=== PATIENT | female | born 2000 | race Hispanic/Latino ===

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

== ENCOUNTER 2021-03-22 23:37 | Emergency (ER) | payer MEDICAID ==
[~2021-03-22] VITALS: Ht 149.9 cm; Wt 65.0 kg
[~2021-03-22 23:37] MED LIST changes: +PHENERGAN25 MG/TAB PO
[2021-03-23 01:30] VITALS: BP 102/67
[2021-03-23] MEDS ORDERED: ZPAK PO (03:15)
== END 2021-03-23 03:25 | disposition home or self-care (01) ==
LOC: ED 23:37
DX: J02.9 Acute pharyngitis, unspecified (principal); Z20.822 Contact with and (suspected) exposure to COVID-19

== ENCOUNTER 2021-08-26 18:20 | Emergency (ER) | payer MEDICAID ==
[~2021-08-26] VITALS: Ht 149.9 cm; Wt 53.0 kg
[~2021-08-26 18:20] MED LIST changes: +ZPAK PO
[2021-08-26 20:28] LABS: HEMATOCRIT 41.9 % (37.0-47.0); HEMOGLOBIN 13.9 g/dl (12.0-16.0); IMMATURE GRANULOCYTES 0.7 % (0.0-5.0); MEAN CELL VOLUME 96.1 fL CALC (80.0-100.0); MEAN CORPUSCULAR HGB 31.9 pG CALC (26.0-32.0); MEAN CORPUSCULAR HGB CONC 33.2 g/dL CAL (32.0-36.0); RED BLOOD COUNT 4.36 mill/uL (4.20-5.60); RED CELL DISTRI WIDTH 12.4 % (11.5-15.5)
[2021-08-26 20:30] LABS: URINE BILIRUBIN - DIPSTICK NEGATIVE (NEGATIVE); URINE BLOOD DIPSTICK NEGATIVE (NEGATIVE); URINE COLOR YELLOW; URINE GLUCOSE - DIPSTICK NEGATIVE (NEGATIVE); URINE KETONE 40 mg/dL (NEGATIVE); URINE LEUK ESTERASE NEGATIVE (NEGATIVE); URINE PROTEIN - DIPSTICK TRACE mg/dL (NEG-TRACE); URINE SPECIFIC GRAVITY >=1.030; URINE UROBILINOGEN - DIPSTICK 0.2 E.U./dL (0.2)
[2021-08-26 20:31] LABS: URINE NITRITE - DIPSTICK NEGATIVE (Negative)
[2021-08-26 20:45] LABS: ALKALINE PHOSPHATASE 51 u/l (38-126); AMYLASE 59 u/l (30-110); ANION GAP 15 (6-22 (CALC)); BILIRUBIN, TOTAL 0.5 mg/dL (0.0-1.4); BUN 14 mg/dL (7-17); BUN/CREATININE RATIO 21 (12-20 (CALC)); CARBON DIOXIDE 25 mmol/l (22-30); CHLORIDE 102 mmol/l (95-108); CREATININE 0.7 mg/dL (0.5-1.0); GFR > 60 ML/MIN (>=60 (CALC)); GFR FOR AFR.AMER. > 60 ML/MIN (>=60 (CALC)); LIPASE 58 u/l (23-300); POTASSIUM 3.8 mmol/l (3.5-5.1); SGOT/AST 26 u/l (14-36); SODIUM 137 mmol/l (137-146); TOTAL PROTEIN 8.2 g/dL (6.3-8.2)
[2021-08-26 21:35] VITALS: BP 101/59
== END 2021-08-26 21:35 | disposition home or self-care (01) ==
LOC: ED 18:20
PROVIDERS: Family Medicine
DX: U07.1 COVID-19 (principal)

== ENCOUNTER 2021-11-09 17:35 | Emergency (ER) | payer MEDICAID ==
[~2021-11-09] VITALS: Ht 149.9 cm; Wt 52.0 kg
[2021-11-09 17:56] VITALS: BP 133/91
[2021-11-09 18:00] VITALS: BP 135/80
[2021-11-09 18:15] VITALS: BP 117/60
[2021-11-09] MEDS ORDERED: DOXYCYCLINE100 MG PO (18:24)
[2021-11-09 18:30] VITALS: BP 113/57
[2021-11-09 18:35] LABS: HEMATOCRIT 38.6 % (37.0-47.0); HEMOGLOBIN 12.8 g/dl (12.0-16.0); IMMATURE GRANULOCYTES 0.4 % (0.0-5.0); MEAN CELL VOLUME 97.2 fL CALC (80.0-100.0); MEAN CORPUSCULAR HGB 32.2 pG CALC (26.0-32.0); MEAN CORPUSCULAR HGB CONC 33.2 g/dL CAL (32.0-36.0); NEUT# 4.65 thou/uL (2.00-7.15); RED BLOOD COUNT 3.97 mill/uL (4.20-5.60); RED CELL DISTRI WIDTH 12.8 % (11.5-15.5)
[2021-11-09 18:36] LABS: URINE BILIRUBIN - DIPSTICK NEGATIVE (NEGATIVE); URINE BLOOD DIPSTICK MODERATE (NEGATIVE); URINE COLOR YELLOW; URINE GLUCOSE - DIPSTICK NEGATIVE (NEGATIVE); URINE KETONE NEGATIVE (NEGATIVE); URINE LEUK ESTERASE NEGATIVE (NEGATIVE); URINE PH 6.5 (4.5-8.0); URINE PROTEIN - DIPSTICK NEGATIVE (NEG-TRACE); URINE SPECIFIC GRAVITY >=1.030; URINE UROBILINOGEN - DIPSTICK 0.2 E.U./dL (0.2)
[2021-11-09 18:38] LABS: URINE NITRITE - DIPSTICK NEGATIVE (Negative)
[2021-11-09 18:44] LABS: URINE SQUAMOUS EPITHELIAL CELL FEW EPI/hpf (0-FEW)
[2021-11-09 18:45] VITALS: BP 109/63
[2021-11-09 18:54] LABS: ALBUMIN 4.3 g/dL (3.2-5.0); ALKALINE PHOSPHATASE 53 u/l (38-126); ANION GAP 12 (6-22 (CALC)); BILIRUBIN, TOTAL 0.4 mg/dL (0.0-1.4); BUN 10 mg/dL (7-17); BUN/CREATININE RATIO 16 (12-20 (CALC)); CARBON DIOXIDE 27 mmol/l (22-30); CHLORIDE 105 mmol/l (95-108); CREATININE 0.6 mg/dL (0.5-1.0); GFR > 60 ML/MIN (>=60 (CALC)); GFR FOR AFR.AMER. > 60 ML/MIN (>=60 (CALC)); LIPASE 58 u/l (23-300); POTASSIUM 3.8 mmol/l (3.5-5.1); SGOT/AST 26 u/l (14-36); SODIUM 141 mmol/l (137-146); TOTAL PROTEIN 7.4 g/dL (6.3-8.2)
[2021-11-09] MEDS ORDERED: NITROFURANTN100 M2 PO (18:55)
[2021-11-09 19:00] VITALS: BP 118/62
== END 2021-11-09 19:15 | disposition home or self-care (01) ==
LOC: ED 17:35
PROVIDERS: Family Medicine
DX: A64 Unspecified sexually transmitted disease (principal); N39.0 Urinary tract infection, site not specified

== ENCOUNTER 2022-03-30 13:05 | Emergency (ER) | payer MEDICAID ==
[~2022-03-30] VITALS: Ht 149.9 cm; Wt 54.5 kg
[~2022-03-30 13:05] MED LIST changes: +DOXYCYCLINE100 MG PO; +NITROFURANTN100 M2 PO
[2022-03-30 13:42] LABS: URINE BILIRUBIN - DIPSTICK NEGATIVE (NEGATIVE); URINE BLOOD DIPSTICK LARGE (NEGATIVE); URINE COLOR YELLOW; URINE GLUCOSE - DIPSTICK NEGATIVE (NEGATIVE); URINE KETONE NEGATIVE (NEGATIVE); URINE LEUK ESTERASE NEGATIVE (NEGATIVE); URINE PH 6.5 (4.5-8.0); URINE PROTEIN - DIPSTICK NEGATIVE (NEG-TRACE); URINE UROBILINOGEN - DIPSTICK 0.2 E.U./dL (0.2)
[2022-03-30 13:45] LABS: URINE NITRITE - DIPSTICK NEGATIVE (Negative)
[2022-03-30 13:47] LABS: HEMATOCRIT 42.8 % (37.0-47.0); HEMOGLOBIN 14.3 g/dl (12.0-16.0); IMMATURE GRANULOCYTES 0.8 % (0.0-5.0); MEAN CELL VOLUME 97.1 fL CALC (80.0-100.0); MEAN CORPUSCULAR HGB 32.4 pG CALC (26.0-32.0); MEAN CORPUSCULAR HGB CONC 33.4 g/dL CAL (32.0-36.0); NEUT# 2.62 thou/uL (2.00-7.15); RED BLOOD COUNT 4.41 mill/uL (4.20-5.60); RED CELL DISTRI WIDTH 13.5 % (11.5-15.5)
[2022-03-30 13:55] LABS: URINE RBC 25-50 RBC/hpf (0-5)
[2022-03-30 13:56] LABS: URINE SQUAMOUS EPITHELIAL CELL MODERATE EPI/hpf (0-FEW)
[2022-03-30 14:27] VITALS: BP 109/61
[2022-03-30 14:30] VITALS: BP 115/60
[2022-03-30 15:55] LABS: ALBUMIN 4.8 g/dL (3.2-5.0); ALKALINE PHOSPHATASE 46 u/l (38-126); ANION GAP 10 (6-22 (CALC)); BILIRUBIN, TOTAL 0.4 mg/dL (0.0-1.4); BUN 13 mg/dL (7-17); BUN/CREATININE RATIO 23 (12-20 (CALC)); CARBON DIOXIDE 27 mmol/l (22-30); CHLORIDE 105 mmol/l (95-108); CREATININE 0.6 mg/dL (0.5-1.0); GFR FOR AFR.AMER. > 60 ML/MIN (>=60 (CALC)); GFR OTHER RACES > 60 ML/MIN (>=60 (CALC)); LIPASE 51 u/l (23-300); POTASSIUM 4.2 mmol/l (3.5-5.1); SGOT/AST 20 u/l (14-36); SODIUM 137 mmol/l (137-146); TOTAL PROTEIN 7.5 g/dL (6.3-8.2)
[2022-03-30 16:07] VITALS: BP 104/60
[2022-03-30 16:11] LABS: BETA-HCG, QUANT(RESULT NUMBER) <2 mIU/mL
[2022-03-30 16:30] VITALS: BP 98/56
[2022-03-30 17:00] VITALS: BP 98/56
== END 2022-03-30 17:00 | disposition home or self-care (01) ==
LOC: ED 13:05
PROVIDERS: Family Medicine
DX: N92.0 Excessive and frequent menstruation with regular cycle (principal)

== ENCOUNTER 2024-07-05 15:05 | Emergency (ER) | payer SELFPAY ==
[~2024-07-05] VITALS: Ht 149.9 cm; Wt 63.9 kg
[2024-07-05] VITALS (9 sets, daily range): BP systolic 99–137; BP diastolic 51–86
[2024-07-05] MEDS ORDERED: SODIUM CHLORIDE 0.9% 1,000 ML IV ONE (15:25)
[2024-07-05] MEDS ORDERED: KETOROLAC TROMETHAMINE 15 MG/ML SDV IV ONE (15:25)
[2024-07-05] MEDS ORDERED: ISOVUE-300 (Iopamidol) 100 ML SDV IV ONE (15:40)
[2024-07-05 15:50] LABS: BASO% 0.5 % (0-3); EOS% 2.1 % (0-8); HEMATOCRIT 42.1 % (37.0-47.0); HEMOGLOBIN 14.2 g/dl (12.0-16.0); IMMATURE GRANULOCYTES 0.4 % (0.0-5.0); LYMPH% 24.5 % (15-41); MEAN CELL VOLUME 94.6 fL CALC (80.0-100.0); MEAN CORPUSCULAR HGB 31.9 pG CALC (26.0-32.0); MEAN CORPUSCULAR HGB CONC 33.7 g/dL CAL (32.0-36.0); MONO% 6.4 % (2-13); NEUT# 9.95 thou/uL (2.00-7.15); NEUT% 66.1 % (42-76); RED BLOOD COUNT 4.45 mill/uL (4.20-5.60); RED CELL DISTRI WIDTH 12.4 % (11.5-15.5)
[2024-07-05 15:52] LABS: URINE BILIRUBIN - DIPSTICK Negative (NEGATIVE); URINE BLOOD DIPSTICK Small (NEGATIVE); URINE GLUCOSE - DIPSTICK Negative (NEGATIVE); URINE KETONE Negative (NEGATIVE); URINE NITRITE - DIPSTICK Negative (Negative); URINE PROTEIN - DIPSTICK Negative (NEG-TRACE); URINE UROBILINOGEN - DIPSTICK 0.2 E.U./dL (0.2)
[2024-07-05 15:54] LABS: URINE COLOR Yellow; URINE LEUK ESTERASE Small (NEGATIVE)
[2024-07-05 16:01] LABS: URINE TRICHOMONAS FEW hpf
[2024-07-05 16:02] LABS: URINE BACTERIA FEW hpf
[2024-07-05 16:04] LABS: ALBUMIN 5.1 g/dL (3.2-5.0); CREATININE 0.6 mg/dL (0.5-1.0); POTASSIUM 3.7 mmol/l (3.5-5.1); TOTAL PROTEIN 8.5 g/dL (6.3-8.2)
[2024-07-05 16:05] LABS: URINE SQUAMOUS EPITHELIAL CELL MODERATE EPI/hpf (0-FEW)
[2024-07-05 16:07] LABS: BILIRUBIN, TOTAL 0.6 mg/dL (0.02-1.3)
[2024-07-05] MEDS ORDERED: METRONIDAZOLE500 MG PO (17:58)
[2024-07-05] MEDS ORDERED: CEPHALEXIN500 M1 PO (17:58)
[2024-07-05] MEDS ORDERED: metroNIDAZOLE 500 MG/TAB PO ONE (18:00)
== END 2024-07-05 18:52 | disposition home or self-care (01) | DRG 833 ==
LOC: ED 15:05
PROVIDERS: Family Medicine
DX: O23.591 Infection of other part of genital tract in pregnancy, first trimester (principal); A59.01 Trichomonal vulvovaginitis; Z3A.01 Less than 8 weeks gestation of pregnancy
CPT/HCPCS: J1885

== ENCOUNTER 2024-07-21 16:39 | Emergency (ER) | payer SELFPAY ==
[~2024-07-21] VITALS: Ht 149.9 cm; Wt 65.7 kg
[~2024-07-21 16:39] MED LIST changes: +CEPHALEXIN500 M1 PO; +METRONIDAZOLE500 MG PO
[2024-07-21 17:16] VITALS: BP 116/85
[2024-07-21] MEDS ORDERED: ONDANSETRON 4 MG/TAB ODT SL ONE (17:20)
[2024-07-21 17:30] VITALS: BP 115/74
[2024-07-21 17:45] VITALS: BP 108/66
[2024-07-21 18:00] VITALS: BP 101/62
[2024-07-21] MEDS ORDERED: ONDANSETRON4 MG PO (18:05)
[2024-07-21 18:15] VITALS: BP 110/76
[2024-07-21 18:23] VITALS: BP 110/76
== END 2024-07-21 18:45 | disposition home or self-care (01) | DRG 833 ==
LOC: ED 16:39
DX: O99.511 Diseases of the respiratory system complicating pregnancy, first trimester (principal); J06.9 Acute upper respiratory infection, unspecified; Z3A.09 9 weeks gestation of pregnancy; Z20.822 Contact with and (suspected) exposure to COVID-19